=== PATIENT | female | born 1980 | race Caucasian/White ===

== ENCOUNTER 2025-01-28 03:35 | Emergency (ER) | payer OTHER ==
[~2025-01-28] VITALS: Ht 167.6 cm; Wt 63.6 kg
[2025-01-28 03:39] VITALS: TEMP 98.2
--- NOTE | 2025-01-28 03:56 | Physician Documentation ---
History of Present Illness ~ Chief Complaint: Back Pain Stated Complaint: LOWER LEFT BACK PAIN Time Seen by MD: 03:52 HPI 44-year-old female, history of kidney stones who presents with sudden onset of left flank pain. She tells me she was doing fine until 2:00 a.m. when she developed sudden onset severe left flank pain. It does radiate around to the side of her abdomen. It feels like a kidney stone. The pain is severe, and nothing makes it better. She is unable to sit still to find a position of comfort. She reports ass ociated nausea. She did vomit. No fevers or chills. No dysuria or hematuria. No low abdominal pain. Medication Reconciliation Allergies: Coded Allergies: midazolam (Verified Allergy, Unknown, 01/28/25) Review of Systems Constitutional: Denies: fever Gastrointestinal: Reports: abdominal pain, nausea Genitourinary: Reports: flank pain Physical Exam Physical Exam Vital Signs: Temperature: 98.2, Heart Rate: 67, Respiratory Rate: 18, Pulse Oximetry: 100, Weight: 63.640 Physical Exam General: This is an uncomfortable appearing thin young woman who is pacing around the room, and unable to sit still, appears in severe pain HEENT: Atraumatic, oropharynx is moist Heart: Tachycardic, appears regular Lungs: normal work of breathing, normal oxygen saturation on room air Abdomen: Soft, mild tenderness on palpation of the left abdomen, otherwise nontender Back: Left CVA tenderness to percussion Neuro: Alert and oriented Psychiatric: Anxious and appears in pain, but is cooperative Progress Results/Orders Results/Orders Completed Orders - SKYLAR RIBEIRO MD Cbc/Diff (01/28/25 04:01) CMP (01/28/25 04:01) Normal Saline 1000ml (Sodium Chloride 10 (01/28/25 04:05) Ondansetron Inj. (Zofran 4mg/2ml Vial) (01/28/25 04:05) Ketorolac Trometh 15mg/Ml Vial (Toradol (01/28/25 04:05) Fentanyl/Pf (Fentanyl 0.05 Mg/Ml Syringe (01/28/25 04:05) Ketorolac Trometh 15mg/Ml Vial (Toradol (01/28/25 04:40) Ua W/Microscopic, Cult If Ind (01/28/25 04:29) Medications Received in ER Medications (Trade) Dose Ordered Sig/Refugio Route PRN Reason Start Time Stop Time Status Last Admin Dose Admin Sodium Chloride 1,000 ml @ 1,000 mls/hr ONCE ONCE IV 01/28/25 04:05 01/28/25 05:04 DC 01/28/25 04:20 1,000 MLS/HR (fentaNYL 0.05 MG/ML syringe) 100 mcg ONCE ONCE IV 01/28/25 04:05 01/28/25 04:06 DC 01/28/25 04:19 100 MCG (Toradol injection) 15 mg ONCE ONCE IV 01/28/25 04:40 01/28/25 04:41 DC 01/28/25 04:45 15 MG Vital Signs 01/28/25 01/28/25 01/28/25 01/28/25 03:39 04:19 04:34 04:45 Temp 98.2 Pulse 67 Resp 18 14 16 B/P (MAP) Pulse Ox 100 01/28/25 01/28/25 01/28/25 01/28/25 04:46 05:18 05:18 05:25 Pulse 62 72 Resp 16 16 16 16 B/P (MAP) 140/83 (102) 107/68 (81) Pulse Ox 97 100 O2 Flow Rate 0 0 Laboratory Tests Test 01/28/25 04:29 01/28/25 04:48 Urine Specimen Description Cln catch midstream Urine Color Yellow Urine Clarity Cloudy Urine pH 6.0 Urine Specific [place] >=1.030 Urine Protein Negative Urine Glucose (UA) Negative Urine Ketones Negative Urine Occult Blood Small Urine Nitrite Negative Urine Bilirubin Negative Urine Urobilinogen 0.2 Urine Leukocyte Esterase Trace H Urine RBC 3-10 Urine WBC 5-10 H Urine Squamous Epithelial Cells Many Urine Bacteria 3+ Urine Culture Indicated Rejected for culture Volume Urine Centrifuged 10 ml Urine Comment White Blood Count 10.3 Red Blood Count 4.26 Hemoglobin 13.0 Hematocrit 36.7 Mean Corpuscular Volume 86.2 Mean Corpuscular Hemoglobin 30.6 Mean Corpuscular Hemoglobin Concent 35.5 Red Cell Distribution Width 13.2 Platelet Count 297 Mean Platelet Volume 8.3 Neutrophils (%) (Auto) 73.3 Lymphocytes (%) (Auto) 19.1 L Monocytes (%) (Auto) 6.0 Eosinophils (%) (Auto) 1.2 Basophils (%) (Auto) 0.4 Neutrophils # (Auto) 7.5 Lymphocytes # (Auto) 2.0 Monocytes # (Auto) 0.6 Eosinophils # (Auto) 0.1 Basophils # (Auto) 0.0 CBC Comment Sodium Level 139 Potassium Level 3.3 L Chloride Level 106 Carbon Dioxide Level 26.0 Anion Gap 7 L Blood Urea Nitrogen 16 Creatinine 0.88 Estimated GFR/1.73 m2 70 BUN/Creatinine Ratio 18.2 Glucose Level 143 H Calcium Level 8.4 L Total Bilirubin 0.7 Aspartate Amino Transf (AST/SGOT) 11 Alanine Aminotransferase (ALT/SGPT) 19 Alkaline Phosphatase 62 Total Protein 6.2 L Albumin 3.4 Globulin 2.8 Albumin/Globulin Ratio 1.2 Chemistry Comments Medical Decision Making Differential Dx:Considerations: Include: Appendicitis, Bowel obstruction, Musculoskeletal pain, Pyelonephritis, Strain, Urinary obstruction, Ovarian torsion Differential Diagnosis Differential includes kidney stone or infected stone Assessment 44-year-old female with a history of kidney stones who presents with flank pain and a history and exam did appear consistent with a kidney stone. An IV was established and she was given pain and nausea medications and IV fluids. Labs show normal kidney function. Urinalysis without signs of an infection. On re- evaluation, her pain was well controlled and she requested to go home. I did offer abdominal imaging, to evaluate for the size of the stone or other comp lications, but she declined after shared decision-making conversation. She will be discharged home with symptomatic treatment and return precautions. Departure Time of Disposition: 05:29 Disposition: 01 HOME / SELF CARE / HOMELESS Impression: Primary Impression: Kidney stone Condition: Improved Discharge Instructions: Kidney Stones Referrals: NO PRIMARY CARE PROVIDER (PCP) Education Educated: Patient Educated regarding: diagnosis, treatment, need for follow up Signature Scribe Signature: sarah Attestation: SKYLAR Vasquez MD Jan 28, 2025 03:56
[2025-01-28] MEDS: fentaNYL/PF 50MCG/1 ML 2ML syringe IV ONE (04:19)
[2025-01-28] MEDS: normal saline 1000ml 1,000 ML IV ONE (04:20)
[2025-01-28] MEDS: ondansetron/PF 4mg/2ml inj IV ONE (04:33)
[2025-01-28] MEDS: ketorolac trometh 15mg/ml vial 15 MG/ML ML IV ONE ×2 (04:33→04:45)
[2025-01-28 04:56] LABS: BILIRUBIN,URINE NEGATIVE (Neg); CLARITY,URINE CLOUDY (Clear); COLOR,URINE YELLOW (Yellow); GLUCOSE, URINE NEGATIVE (Neg); KETONES,URINE NEGATIVE (Neg); LEUKOCYTE ESTERASE ,URINE TRACE (Neg); NITRITES, URINE NEGATIVE (Neg); OCCULT BLOOD,URINE SMALL (Neg); PROTEIN,URINE NEGATIVE (Neg); UA COLLECTION TYPE CLN CATCH MIDSTREAM; UROBILINOGEN,URINE 0.2 E.U/dL (0.2-1.0)
[2025-01-28 05:03] LABS: BACTERIA,URINE 3+ /HPF (Neg); SQUAMOUS EPITHELIAL CELL,UR MANY /LPF (FEW)
[2025-01-28 05:05] LABS: BASOPHILS % (AUTO) 0.4 % (0-1); EOSINOPHILS # (AUTO) 0.1 X10'3 (0-0.9); EOSINOPHILS % (AUTO) 1.2 % (0-6); HEMATOCRIT 36.7 % (35.0-45.0); LYMPHOCYTES % (AUTO) 19.1 % (21-51); MEAN CORPUSCULAR HEMOGLOBIN 30.6 PG (27.0-31.0); MEAN CORPUSCULAR HGB CONC 35.5 g/dL (33.0-36.5); MEAN CORPUSCULAR VOLUME 86.2 FL (78-98); MEAN PLATELET VOLUME 8.3 FL (7.4-10.4); MONOCYTES # (AUTO) 0.6 X10'3 (0-0.9); NEUTROPHILS # (AUTO) 7.5 X10'3 (1.8-7.7); NEUTROPHILS % (AUTO) 73.3 % (42-75); PLATELET COUNT 297 X10'3 (140-440); RED BLOOD COUNT 4.26 X10'6 (4.20-5.60); RED CELL DISTRIBUTION WIDTH 13.2 % (11.5-14.5); WHITE BLOOD COUNT 10.3 X10'3 (4.5-11.0)
[2025-01-28 05:15] LABS: ALANINE AMINOTRANSFERASE 19 U/L (12-78); ALBUMIN 3.4 G/DL (3.4-5.0); ALBUMIN/GLOBULIN RATIO 1.2 (1.1-1.5); ALKALINE PHOSPHATASE 62 IU/L (46-116); ANION GAP 7 (8-16); ASPARTATE AMINO TRANSFERASE 11 U/L (10-37); BILIRUBIN,TOTAL 0.7 MG/DL (0.1-1.0); BLOOD UREA NITROGEN 16 MG/DL (7-18); BUN/CREATININE RATIO 18.2 (10.0-20.0); CALCIUM 8.4 MG/DL (8.5-10.1); CHLORIDE 106 MMOL/L (99-107); CREATININE 0.88 MG/DL (0.40-0.90); GLUCOSE 143 MG/DL (70-104); POTASSIUM 3.3 MMOL/L (3.5-5.1); SODIUM 139 MMOL/L (135-145); TOTAL PROTEIN 6.2 G/DL (6.4-8.2); eCRCL 77 ML/MIN; eGFR 70 ML/MIN
[2025-01-28 05:25] VITALS: BP 107/68; PULSE 72; RESP 16; O2SAT 100
== END 2025-01-28 05:45 | disposition home or self-care (01) ==
LOC: ER 03:36 → EDSEX 03:36 → ER 05:45
DX: N20.0 Calculus of kidney (principal)
CPT/HCPCS: 36415; 80053; 81001; 85025; 96374; 96375; 99284; J1885; J3010; J7030; A4615